=== PATIENT | male | born 1960 | race Caucasian/White ===

== ENCOUNTER 2017-07-23 05:34 | Inpatient (IN) | payer OTHER ==
[2017-07-23] VITALS (7 sets, daily range): BP systolic 163–229; BP diastolic 88–125; PULSE 62–70; TEMP 36.4–37; O2SAT 96–98; Ht 172.7 cm; Wt 93.0 kg
[~2017-07-23] VITALS: Ht 172.7 cm; Wt 93.0 kg
[2017-07-23] MEDS ORDERED: SODIUM CHLORIDE 0.9% 1000ML 1,000 ML IV SCH (05:48)
[2017-07-23] MEDS ORDERED: LABETALOL HCL IV 5 MG/ML 20ML IV STA ×3 (05:51→13:27)
--- NOTE | 2017-07-23 05:52 | EMERGENCY ROOM VISIT NOTE ---
History Report prepared by Aleida: Iftikhar Augustin Under the Supervision of: Dr. Cornelio Mcdaniel D.O. First contact with patient: 05:43 Chief Complaint: HYPERTENSION Stated Complaint: HIGH BLOOD PRESSURE History of Present Illness The patient is a 57 year old male who presents to the Emergency Room from [facility] with stroke like symptoms that he first noticed at 0200 this morning, 4 hours prior to arrival. The patient states that when he woke up this morning at 0200 he could not move his entire right side. He claims that he was stuck on the floor and was unable to move. He is having difficulty talking as well. The patient currently has much better control of his right arm and right leg, and notes that the weakness on the right side is improving. He can still feel a facial droop and notes its still difficult to talk. He currently denies any headache. His current blood pressure is 208/140. 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 A total of ten systems were reviewed and were otherwise negative. Past Medical & Surgical Patient denies any past medical/surgical histories. Family History Patient denies any family medical histories. 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) Current/Historical Medications No Active Prescriptions or Reported Meds Allergies Coded Allergies: No Known Allergies (Unverified , 07/23/17) Physical Exam Vital Signs Date Time Temp Pulse Resp B/P (MAP) Pulse Ox O2 Delivery O2 Flow Rate FiO2 07/23/17 06:54 60 16 180/102 96 Room Air 07/23/17 06:42 69 16 168/103 98 Room Air 07/23/17 06:23 172/104 07/23/17 06:19 63 12 97 07/23/17 06:19 97 Room Air 07/23/17 06:15 189/110 07/23/17 06:15 77 07/23/17 06:12 191/109 07/23/17 05:38 36.4 72 18 208/141 98 Room Air Physical Exam GENERAL: Awake, alert, well-appearing, in no distress HENT: Mild right facial droop. Normocephalic, atraumatic. Oropharynx unremarkable. EYES: Normal conjunctiva. Sclera non-icteric. NECK: Supple. No nuchal rigidity. FROM. No JVD. RESPIRATORY: Clear to auscultation. CARDIAC: Regular rate, normal rhythm. Extremities warm and well perfused. Pulses equal. ABDOMEN: Soft, non-distended. No tenderness to palpation. No rebound or guarding. No masses. RECTAL: Deferred. MUSCULOSKELETAL: There is a mild right pronator drift in the RUQ. Normal Strength. Chest examination reveals no tenderness. The back is symmetrical on inspection without obvious abnormality. There is no CVA tenderness to palpation. No joint edema. LOWER EXTREMITIES: Calves are equal size bilaterally and non-tender. No edema. No discoloration. NEURO: Normal sensorium. There is a mild right pronator drift in the RUQ. Normal Strength. SKIN: No rash or jaundice noted. Medical Decision & Procedures ER Provider Diagnostic Interpretation: X ray results as stated below per my interpretation and radiologist interpretation. Other radiology results as stated below per my review and radiologist interpretation ANGIOGRAPHY HEAD COMBO HISTORY: Hypertension STROKE, HIGH BLOOD PRESSURE TECHNIQUE: Multiaxial CT images of the head were performed both before and after the intravenous administration of contrast to evaluate the major cerebral vessels. Maximum intensity projection images were also obtained. A dose lowering technique was utilized adhering to the principles of ALARA. COMPARISON: None. FINDINGS: There is no mass, hematoma, midline shift, or acute infarct. Visualized intracranial internal carotid arteries, distal vertebral arteries, and basilar artery are widely patent. There is no significant stenosis, occlusion, or aneurysm seen within the bilateral ACAs, MCAs, or information systems supervisor. Mild scattered atherosclerotic change in the intracranial vasculature IMPRESSION: No significant stenosis, occlusion, or aneurysm within the [place]. Mild scattered atherosclerotic change with no significant stenotic process. The above report was generated using voice recognition software. It may contain grammatical, syntax or spelling errors. Electronically signed by: Anthony Dhillon M.D. 07/23/2017 6:47 AM Dictated Date/Time: 07/23/2017 6:42 AM CTA NECK: Atherosclerosis with noncalcified plaque at the carotid bifurcations. No hemodynamically significant stenosis. Bilateral vertebral arteries are patent and normal in caliber. CT HEAD: No ICH, mass effect, or edema. The [place]-white matter differentiation appears preserved. No skull fracture. Visualized sinuses and mastoid air cells are clear. CTA HEAD: Patent intracranial circulation. No evidence of aneurysm or vascular malformation. 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 Laboratory Results 07/23/17 05:50 Red Blood Count 5.10, Mean Corpuscular Volume 87.6, Mean Corpuscular Hemoglobin 29.6, Mean Corpuscular Hemoglobin Concent 33.8, Mean Platelet Volume 11.5, Neutrophils (%) (Auto) 80.3, Lymphocytes (%) (Auto) 13.6, Monocytes (%) (Auto) 5.0, Eosinophils (%) (Auto) 0.6, Basophils (%) (Auto) 0.2, Neutrophils # (Auto) 9.08, Lymphocytes # (Auto) 1.54, Monocytes # (Auto) 0.56, Eosinophils # (Auto) 0.07, Basophils # (Auto) 0.02 07/23/17 05:50 Test 07/23/17 05:50 07/23/17 06:14 07/23/17 06:17 White Blood Count 11.30 K/uL (4.8-10.8) Red Blood Count 5.10 M/uL (4.7-6.1) Hemoglobin 15.1 g/dL (14.0-18.0) Hematocrit 44.7 % (42-52) Mean Corpuscular Volume 87.6 fL (80-100) Mean Corpuscular Hemoglobin 29.6 pg (25-34) Mean Corpuscular Hemoglobin Concent 33.8 g/dl (32-36) Platelet Count 191 K/uL (130-400) Mean Platelet Volume 11.5 fL (7.4-10.4) Neutrophils (%) (Auto) 80.3 % Lymphocytes (%) (Auto) 13.6 % Monocytes (%) (Auto) 5.0 % Eosinophils (%) (Auto) 0.6 % Basophils (%) (Auto) 0.2 % Neutrophils # (Auto) 9.08 K/uL (1.4-6.5) Lymphocytes # (Auto) 1.54 K/uL (1.2-3.4) Monocytes # (Auto) 0.56 K/uL (0.11-0.59) Eosinophils # (Auto) 0.07 K/uL (0-0.5) Basophils # (Auto) 0.02 K/uL (0-0.2) RDW Standard Deviation 43.4 fL (36.4-46.3) RDW Coefficient of Variation 13.5 % (11.5-14.5) Immature Granulocyte % (Auto) 0.3 % Immature Granulocyte # (Auto) 0.03 K/uL (0.00-0.02) Prothrombin Time 10.5 SECONDS (9.0-12.0) Prothromb Time International Ratio 1.0 (0.9-1.1) Activated Partial Thromboplast Time 22.6 SECONDS (21.0-31.0) Partial Thromboplastin Ratio 0.9 Anion Gap 6.0 mmol/L (3-11) Est Creatinine Clear Calc Drug Dose 68.5 ml/min Estimated GFR () 69.2 Estimated GFR (Non- 59.7 BUN/Creatinine Ratio 10.8 (10-20) Calcium Level 9.3 mg/dl (8.5-10.1) Magnesium Level 2.3 mg/dl (1.8-2.4) Total Creatine Kinase 189 U/L (39-308) Creatine Kinase MB 2.9 ng/ml (0.5-3.6) Creatine Kinase MB Ratio 1.5 (0-3.0) Troponin I < 0.015 ng/ml (0-0.045) Bedside Glucose 138 mg/dl (70-99) Bedside Prothrombin Time INR 1.0 (0.9-1.1) Laboratory results reviewed by me Medications Administered Medications (Trade) Dose Ordered Sig/Katie Route Start Time Stop Time Status Last Admin Dose Admin Sodium Chloride 1,000 ml @ 50 mls/hr Q20H IV 07/23/17 05:48 08/22/17 05:47 07/23/17 05:48 50 MLS/HR Labetalol HCl (Normodyne IV) 20 mg NOW STAT IV 07/23/17 05:51 07/23/17 05:52 DC 07/23/17 06:17 20 MG Labetalol HCl (Normodyne IV) 20 mg NOW STAT IV 07/23/17 06:30 07/23/17 06:32 DC 07/23/17 06:40 20 MG ECG Indication: weakness Rate (beats per minute): 67 Rhythm: normal sinus Findings: no ectopy, other (Normal axis, normal intervals) ED Course 0544: The patient was evaluated in room A10. A complete history and physical exam was performed. 0548: Ordered Sodium Chloride 1000 mL @ 50 mL/hr IV. 0551: Ordered Labetalol HCl 20 mg IV 0623: The patient's blood pressure is down. His symptoms are unchanged. Able to move all extremities. 0630: Ordered Labetalol HCl 20 mg IV. 0650: The Charge Nurse discussed the case with Dr. Dharmesh DAI [facility] at this time. He is aware of the patient's case. Medical Decision Differential Diagnosis includes; CVA, TIA, Aneurysm, Subarachnoid Hemorrhage, Hypertensive crisis. Patient has symptoms suggestive of TIA CVA. Patient's onset of symptoms are unknown patient is from the [facility] and reportedly went to bed at around 10 PM states he woke up at 2 AM with right sided deficits and hemiparesis. Patient states they resolved and he has no difficulty with speech no confusion or headache at this time. Patient has a mild right-sided facial droop and very mild pronator drift on the right side however he has equal strength in bilateral upper and lower extremities normal speech. Patient's blood pressure initially was 210/140 patient was given IV labetalol and his blood pressure is decreased to 190/104. Repeat examination the patient at 6:30 patient is unchanged. Patient currently is not a TPA candidate due to unknown onset and wakeup stroke with deficits that improved drastically over 3 hours prior to presentation. Patient is also in a hypertensive crisis and has been treated with IV medications for hypertension; case be discussed with the hospitalist for admission Blood Pressure Screening Patient's blood pressure: Elevated blood pressure Blood pressure disposition: Referred to PCP Hypertensive Urgency noted. Patient treated and informed of situation. Consults Time Called: 0645 Consulting Physician: Dr. Dharmesh DAI Hospitalist Returned Call: 0650 The Charge Nurse discussed the case with Dr. Dharmesh Jo at this time. He is aware of the patient's case. Impression Primary Impression: Hypertensive crisis Additional Impression: TIA (transient ischemic attack) Critical Care I have personally spent greater than 35 minutes of critical care time in the direct management of this patient. This includes bedside care, interpretation of diagnostic studies, and testing, discussion with consultants, patient, and family members, and other required patient management activities. This 35 minutes is in excess of all separately billable procedures. Scribe Attestation The scribe's documentation has been prepared under my direction and personally reviewed by me in its entirety. I confirm that the note above accurately reflects all work, treatment, procedures, and medical decision making performed by me. Departure Information Dispostion Being Evaluated By Hospitalist Prescriptions No Active Prescriptions or Reported Meds Referrals Gladis FORD (PCP) Patient Instructions My [facility] Stroke History Time Last Known Well Last night before Bed Stroke t-PA Criteria Reviewed Does NOT meet criteria for t-PA Reason t-PA Not Given Treatment not indicated Problem Qualifiers
[2017-07-23] MEDS ORDERED: OPTIRAY 320 IV PRN (06:00)
[2017-07-23 06:06] LABS: BASO % 0.2 %; BASO ABS # 0.02 K/uL (0-0.2); COMPLETE YES; EOS % 0.6 %; HEMATOCRIT 44.7 % (42-52); IG% 0.3 %; LYMPH % 13.6 %; LYMPH ABS # 1.54 K/uL (1.2-3.4); MEAN CELL VOLUME 87.6 fL (80-100); MEAN CORPUSCULAR HEMOGLOBIN 29.6 pg (25-34); MEAN CORPUSCULAR HGB CONC 33.8 g/dl (32-36); MEAN PLATELET VOLUME 11.5 fL (7.4-10.4); NEUT % 80.3 %; PLATELET COUNT 191 K/uL (130-400)
[2017-07-23 06:18] LABS: PARTIAL THROMBOPLASTIN RATIO 0.9; PROTHROMBIN TIME (PATIENT) 10.5 SECONDS (9.0-12.0)
[2017-07-23 06:28] LABS: BLOOD UREA NITROGEN 14 mg/dl (7-18); BUN/CREATININE RATIO 10.8 (10-20); CALCIUM 9.3 mg/dl (8.5-10.1); CARBON DIOXIDE 25 mmol/L (21-32); CHLORIDE 104 mmol/L (98-107); GLUCOSE 140 mg/dl (70-99); MAGNESIUM 2.3 mg/dl (1.8-2.4); POTASSIUM 3.8 mmol/L (3.5-5.1); SODIUM 135 mmol/L (136-145)
[2017-07-23 06:33] LABS: CKMB/CK RATIO 1.5 (0-3.0)
--- NOTE | 2017-07-23 06:48 | DIAGNOSTIC IMAGING REPORT ---
ANGIOGRAPHY HEAD COMBO HISTORY: Hypertension STROKE, HIGH BLOOD PRESSURE TECHNIQUE: Multiaxial CT images of the head were performed both before and after the intravenous administration of contrast to evaluate the major cerebral vessels. Maximum intensity projection images were also obtained. A dose lowering technique was utilized adhering to the principles of ALARA. COMPARISON: None. FINDINGS: There is no mass, hematoma, midline shift, or acute infarct. Visualized intracranial internal carotid arteries, distal vertebral arteries, and basilar artery are widely patent. There is no significant stenosis, occlusion, or aneurysm seen within the bilateral ACAs, MCAs, or mailing specialist. Mild scattered atherosclerotic change in the intracranial vasculature IMPRESSION: No significant stenosis, occlusion, or aneurysm within the [place]. Mild scattered atherosclerotic change with no significant stenotic process. The above report was generated using voice recognition software. It may contain grammatical, syntax or spelling errors. Electronically signed by: Anthony Dhillon M.D. 07/23/2017 6:47 AM Dictated Date/Time: 07/23/2017 6:42 AM
--- NOTE | 2017-07-23 07:14 | DIAGNOSTIC IMAGING REPORT ---
NECK ANGIO WITH CONTRAST HISTORY: Mental status change hypertension TECHNIQUE: Multiaxial CT images of the neck were performed following the intravenous administration of contrast to evaluate the major cervical vessels. Maximum intensity projection images were also obtained. All measurements were calculated based on NASCET criteria. A dose lowering technique was utilized adhering to the principles of ALARA. COMPARISON STUDY: None. FINDINGS: The aortic arch and proximal great vessels are widely patent. There is no significant stenosis, occlusion, or dissection identified within the bilateral common carotid, internal carotid, or vertebral arteries. Mild scattered atherosclerotic change throughout the carotid as well as vertebral basilar systems. No evidence for high-grade stenotic process. IMPRESSION: No significant stenosis, occlusion, or dissection identified within the carotid or vertebral arteries. Moderate scattered atherosclerotic plaque formation The above report was generated using voice recognition software. It may contain grammatical, syntax or spelling errors. Electronically signed by: Anthony Dhillon M.D. 07/23/2017 7:13 AM Dictated Date/Time: 07/23/2017 7:11 AM
[2017-07-23] MEDS ORDERED: PHARMACIST DISCHARGE MED REC CONSULT PRN (08:00)
[2017-07-23] MEDS ORDERED: ONDANSETRON INJ 2 MG/ML 2 ML VIAL IV PRN (08:00)
[2017-07-23] MEDS ORDERED: NITROGLYCERIN 0.4 MG SL PER TAB CHARGE SL PRN (08:00)
--- NOTE | 2017-07-23 08:15 | History and Physical ---
History & Physical Date & Time of Service: Jul 23, 2017 at 07:28 Chief Complaint: High Blood Pressure Primary Care Physician: Gladis FORD History of Present Illness Source: patient, hospital records 57yo male with no significant PMH who presented from [facility] with complaints of right sided numbness, weakness, difficulty walking, and difficulty speaking. Patient reports that starting Sunday AM he simply didn't feel well. He had generalized weakness and fatigue in the absence of fever, chills, or focal motor /sensory symptoms. Sometime on Sunday afternoon, however, he developed right arm and right leg numbness. The face at that time was spared. Then, sometime late in the evening Sunday, he noted mild right-sided weakness. He went to bed, and about 0200 today, he couldn't walk due to extreme right- sided weakness. He told his cell-mate about his symptoms and both he and his cell-mate also noted dysarthric speech at that time. He presented to [facility] later this morning where CTA of the head/neck were negative. He told ER personnel that his right-sided weakness was improving but still not back to baseline. His blood pressure was also markedly elevated to >200 and he received 2 doses of IV labetalol. During my assessment his SBP was about 180. 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) Allergies Coded Allergies: No Known Allergies (Unverified , 07/23/17) Home Medications No Active Prescriptions or Reported Meds Review of Systems Constitutional: + weakness, + fatigue, + problem reported (weight gain over time), No fever, No chills, No weight loss Eyes: No worsening of vision, No eye pain, No redness, No discharge, No diplopia ENT: No hearing loss, No nasal symptoms, No sore throat, No trouble swallowing Respiratory: No cough, No sputum, No wheezing, No shortness of breath, No dyspnea on exertion, No dyspnea at rest Cardiovascular: No chest pain, No orthopnea, No edema Abdomen: No pain, No nausea, No vomiting, No diarrhea, No constipation, No GI bleeding Musculoskeletal: + problem reported (chronic anterior left neck pain X 1 year) , No joint pain, No muscle pain Genitourinary - Male: No dysuria Neurologic: + weakness (right arm/leg), + numbness/tingling (right arm/leg), + problem reported (no headaches this weekend), No vertigo Psychiatric: No depression symptoms Endocrine: + fatigue Hematologic / Lymphatic: No abnormal bleeding/bruising Integumentary: No itch Physical Exam Vital Signs Date Time Temp Pulse Resp B/P (MAP) Pulse Ox O2 Delivery O2 Flow Rate FiO2 07/23/17 07:17 66 20 181/106 94 Room Air 07/23/17 06:54 60 16 180/102 96 Room Air 07/23/17 06:53 36.4 69 16 168/103 Room Air 07/23/17 06:42 69 16 168/103 98 Room Air 07/23/17 06:23 172/104 07/23/17 06:19 63 12 97 07/23/17 06:19 97 Room Air 07/23/17 06:15 189/110 07/23/17 06:15 77 07/23/17 06:12 191/109 07/23/17 05:38 36.4 72 18 208/141 98 Room Air General Appearance: WD/WN, no apparent distress Head: normocephalic, atraumatic Eyes: normal inspection, PERRL, EOMI, sclerae normal, + pertinent finding ( visual albarran full by direct confrontation) ENT: hearing grossly normal, TMs normal, + pertinent finding (left posterior throat with small, white papule; right-sided lower 2/3 facial droop; mild dysarthria) Neck: supple, no adenopathy, thyroid normal, no JVD, no carotid bruits, trachea midline, + pertinent finding (fullness to left anterior neck but no discrete mass or lymph node) Respiratory/Chest: lungs clear, normal breath sounds, no respiratory distress, no accessory muscle use Cardiovascular: regular rate, rhythm, no gallop, normal peripheral pulses, + systolic murmur (1/6 DEEPTHI LSB) Abdomen/GI: normal bowel sounds, non tender, soft, no organomegaly, no pulsatile mass Back: normal inspection Extremities/Musculoskelatal: no pedal edema Neurologic/Psych: alert, normal mood/affect, normal reflexes, oriented x 3, + facial droop (right), + motor weakness (pronator drift on right; 4/5 strength RUE/RLE; 5/5 strength LUE/LLE), + sensory deficit (intact x 4 extremities), + babinski (on right, negative on left) Skin: + pertinent finding (erythematous macules/papules on back/chest) Lymphatic: no adenopathy (cervical ) Diagnostics Laboratory Results Results Past 24 Hours Test 07/23/17 05:50 07/23/17 06:14 07/23/17 06:17 Range/Units White Blood Count 11.30 4.8-10.8 K/uL Red Blood Count 5.10 4.7-6.1 M/uL Hemoglobin 15.1 14.0-18.0 g/dL Hematocrit 44.7 42-52 % Mean Corpuscular Volume 87.6 80-100 fL Mean Corpuscular Hemoglobin 29.6 25-34 pg Mean Corpuscular Hemoglobin Concent 33.8 32-36 g/dl Platelet Count 191 130-400 K/uL Mean Platelet Volume 11.5 7.4-10.4 fL Neutrophils (%) (Auto) 80.3 % Lymphocytes (%) (Auto) 13.6 % Monocytes (%) (Auto) 5.0 % Eosinophils (%) (Auto) 0.6 % Basophils (%) (Auto) 0.2 % Neutrophils # (Auto) 9.08 1.4-6.5 K/uL Lymphocytes # (Auto) 1.54 1.2-3.4 K/uL Monocytes # (Auto) 0.56 0.11-0.59 K/uL Eosinophils # (Auto) 0.07 0-0.5 K/uL Basophils # (Auto) 0.02 0-0.2 K/uL RDW Standard Deviation 43.4 36.4-46.3 fL RDW Coefficient of Variation 13.5 11.5-14.5 % Immature Granulocyte % (Auto) 0.3 % Immature Granulocyte # (Auto) 0.03 0.00-0.02 K/uL Prothrombin Time 10.5 9.0-12.0 SECONDS Prothromb Time International Ratio 1.0 0.9-1.1 Activated Partial Thromboplast Time 22.6 21.0-31.0 SECONDS Partial Thromboplastin Ratio 0.9 Sodium Level 135 136-145 mmol/L Potassium Level 3.8 3.5-5.1 mmol/L Chloride Level 104 98-107 mmol/L Carbon Dioxide Level 25 21-32 mmol/L Anion Gap 6.0 3-11 mmol/L Blood Urea Nitrogen 14 7-18 mg/dl Creatinine 1.30 0.60-1.40 mg/dl Est Creatinine Clear Calc Drug Dose 68.5 ml/min Estimated GFR () 69.2 Estimated GFR (Non- 59.7 BUN/Creatinine Ratio 10.8 10-20 Random Glucose 140 70-99 mg/dl Calcium Level 9.3 8.5-10.1 mg/dl Magnesium Level 2.3 1.8-2.4 mg/dl Total Creatine Kinase 189 39-308 U/L Creatine Kinase MB 2.9 0.5-3.6 ng/ml Creatine Kinase MB Ratio 1.5 0-3.0 Troponin I < 0.015 0-0.045 ng/ml Bedside Glucose 138 70-99 mg/dl Bedside Prothrombin Time INR 1.0 0.9-1.1 Diagnostic Radiology CTA head & neck negative for focal stenosis or lesion; no aneurysm. mild-moderate plaque build-up noted. EKG EKG - NSR, no ST changes no LVH Impression Assessment and Plan 57yo male with no PMH presenting with facial droop, mild dysarthria, right arm/ leg weakness, and right arm/leg sensory disturbance. Symptoms and signs are consistent with acute stroke. [facility] and thus he is well out of the window for TPA. 1. suspected left-sided stroke - NPO until swallow evaluation. MRI brain this AM. ECHO, r/o source of embolus. Place on telemetry. Asa 81mg daily. Lipitor 40mg daily. Check lipids, TSH, hemoglobin a1c for risk factor modification. Allow permissive HTN - will NOT lower SBP to less than 180 or DBP less than 100 for the next 24 hours. PT, OT evals. Neurology consultation also requested. 2. elevated BP w/o formal dx of HTN - he likely has essential HTN and the acute elevation is compensatory for #1. Again allow permissive HTN today. 3. hyperglycemia - check hemoglobin a1c, r/o early T2DM. 4. leukocytosis - likely 2nd to #1, but will check u/a and cxr to r/o any infectious issue. 5. DVT proph - lovenox. 6. FEN - NPO until swallow eval by speech. NS at 100cc/hr. Lytes stable. BMP in am. code status - discussed extensively - he wants level 5 DNR; he would not even want short-term intubation/mechanical ventilation conversation witnessed by 2 guards as well Level of Care Telemetry Advanced Directives Existing Living Will: Yes Existing Power of Customs Compliance Director: Yes Resuscitation Status DO NOT RESUSCITATE VTE Prophylaxis VTE Risk Assessment Done? Y/N: Yes Risk Level: Moderate Given or contraindicated: Enoxaparin (Lovenox)SQ Note total time about 60 minutes Additional Copies To Gladis FORD
[2017-07-23 08:47] LABS: ESTIMATED AVERAGE GLUCOSE 134 mg/dl; HA1C FLAG Normal (Normal)
--- NOTE | 2017-07-23 09:06 | DIAGNOSTIC IMAGING REPORT ---
CHEST ONE VIEW PORTABLE CLINICAL HISTORY: leukocytosis, eval for pneumonia pneumonia. Dyspnea. COMPARISON STUDY: No previous studies for comparison. FINDINGS: The bones soft tissues and hemidiaphragms are normal. The cardiomediastinal silhouette is normal. The lungs are clear. The pulmonary vasculature is normal. IMPRESSION: Negative chest. The above report was generated using voice recognition software. It may contain grammatical, syntax or spelling errors. Electronically signed by: Anthony Dhillon M.D. 07/23/2017 9:04 AM Dictated Date/Time: 07/23/2017 9:04 AM
[2017-07-23] MEDS: ATORVASTATIN 40 MG TAB PO SCH ×2 (10:00→15:52)
[2017-07-23] MEDS: ASPIRIN 81 MG ECTAB PO SCH ×2 (10:00→15:52)
[2017-07-23 10:35] LABS: URINE APPEARANCE CLEAR (CLEAR); URINE BILIRUBIN NEG (NEG); URINE COLOR YELLOW; URINE NITRITE NEG (NEG); URINE SPECIFIC GRAVITY > 1.045 (1.000-1.030); UROBILINOGEN NEG (NEG)
[2017-07-23 10:36] LABS: MANUAL MICROSCOPIC REQUIRED? NO; REVIEW REQ? NO
--- NOTE | 2017-07-23 11:11 | DIAGNOSTIC IMAGING REPORT ---
MRI OF THE BRAIN WITHOUT CONTRAST CLINICAL HISTORY: Right-sided numbness. Suspected left-sided stroke. COMPARISON STUDY: CT of the head and CTA of the head July 23, 2017. TECHNIQUE: Utilizing a 1.5 Cassandra magnet and dedicated coil, multiplanar, multiecho imaging of the brain was performed without IV contrast. FINDINGS: Note is made of a subtle focus of increased signal intensity within the left anterior aspect of the rebeca on the diffusion-weighted sequence shown on axial image 7 of 84. There is corresponding hypointensity on the ADC map and a corresponding 9 mm hyperintense focus on the coronal FLAIR sequence. This suggests a small acute to subacute infarct. No additional acute to subacute infarcts are present. Ventricular system is normal. Basilar cisterns are patent. There are no extra-axial collections. Flow-voids for the major intracranial vessels are present. Calvarial signal is maintained. Orbits are unremarkable. Sinuses and mastoid air cells appear clear. No intracranial masses identified on this unenhanced study. Minimal white matter T2 hyperintensity suggest mild small vessel disease. IMPRESSION: 1. Subtle 9 mm focus of signal abnormality within the left anterior rbeeca suggestive of a small acute to subacute infarct. 2. No acute intracranial hemorrhage or mass effect. Electronically signed by: Jose Varela M.D. 07/23/2017 11:10 AM Dictated Date/Time: 07/23/2017 11:04 AM
[2017-07-23] MEDS: ENOXAPARIN 40 MG/0.4 ML SYR SC SCH (11:37)
[2017-07-23] MEDS: SODIUM CHLORIDE 0.9% 1000ML 1,000 ML IV SCH ×2 (11:38→20:01)
[2017-07-23] MEDS: NIFEdipine 30 MG CR TAB PO STA ×2 (11:45→14:53)
[2017-07-23] MEDS ORDERED: LABETALOL HCL IV 5 MG/ML 20ML IV PRN (12:00)
--- NOTE | 2017-07-23 12:06 | Neurology Consultation ---
Neurology Consultation Date of Consultation: Jul 23, 2017. Attending Physician: Gurwinder Davidson MD Primary Care Physician: Gladis FORD Reason for Consultation: The patient is a 57-year-old, who was asked to see the request of Dr. Davidson, for neurologic consultation regarding stroke. History of Present Illness Source: patient, caregiver, hospital records Patient tells me he has no significant past history of heart issues, hypertension, diabetes, dyslipidemia, or other significant problems or neurologic risk factors. He has been on no medication. Currently he has been at [facility] for the last 4 and half years, originally from [place]. During the daytime of July 21 he felt fatigued in general. He had no weakness or numbness, pain, headaches her achiness, and was not ill in any way. He had no cough or fever. He had not done anything out of the ordinary. He woke on July 22 and his right side was weak and mildly sore. He had some tingling on the right side that lasted about 30 minutes, resolve, and return for short time later in the evening. Throughout the day, he had mild right-sided weakness in the arm and leg which did not fluctuate. He did not have speech problems or facial droop. At 0200 hours on July 23 he awoke not being able to move his right side. He tried to get up to go to the bathroom and he fell to the ground. He could not get up. His speech was slurred and he had a facial droop. He had no pain or headache or incontinence of urine. He arrived at the emergency room at 0538 hours today with a temperature of 36.4 , pulse 72 and regular, respiratory rate 18, blood pressure 208/141, and O2 saturation 98 percent. He had right-sided weakness and facial droop with slurred speech. CT scan of the head and CT angiography of the head and neck were all unremarkable with no acute issues, vascular stenosis or abnormalities or stroke of an obvious nature. CBC, Chem profile, TSH, and urinalysis were unremarkable except for a mildly elevated glucose. MRI of the brain was obtained and showed a 9 millimeter left pontine infarct of a subacute nature. There was no hemorrhage. Currently, the patient feels as if he has some right-sided weakness and slurred speech but he does not have any pain or headache. He has no vision problems or dizziness. Past Medical/Surgical History Medical Problems: (1) Hypertensive crisis Status: Acute (2) TIA (transient ischemic attack) Status: Acute Left pontine ischemic infarct Significant hypertension No other past medical history of medical or surgical issues with no history of previous surgery. He does have some borderline elevated glucose readings. Family History Mother age 83 with a senile dementia of the Alzheimer's type. Father age 72 of lung cancer Social History Patient never smoked cigarettes and does not use alcohol. 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 Smoking Status: Never smoker Smokeless Tobacco Use: No Alcohol Use: none Drug Use: none Marital Status: single Housing Status: other (Correctional Facility) Occupation Status: other (Prisoner) Allergies Coded Allergies: No Known Allergies (Unverified , 07/23/17) Current Inpatient Medications Current Inpatient Medications Medications (Trade) Dose Ordered Sig/Katie Route Start Time Stop Time Status Last Admin Dose Admin Ioversol (Optiray 320) 100 ml UD PRN IV 07/23/17 06:00 07/27/17 05:59 Atorvastatin Calcium (Lipitor Tab) 40 mg QAM PO 07/23/17 10:00 08/22/17 09:59 Aspirin (Ecotrin Tab) 81 mg QAM PO 07/23/17 10:00 08/22/17 09:59 Miscellaneous Information (Pharmacist Discharge Med Rec Consult) 1 ea UD PRN N/A 07/23/17 08:00 08/22/17 07:59 Sodium Chloride 1,000 ml @ 100 mls/hr Q10H IV 07/23/17 09:30 08/22/17 09:29 07/23/17 11:38 100 MLS/HR Enoxaparin Sodium (Lovenox Inj) 40 mg QAM SC 07/23/17 10:00 08/22/17 09:59 07/23/17 11:37 40 MG Ondansetron HCl (Zofran Inj) 4 mg Q6H PRN IV 07/23/17 08:00 08/22/17 07:59 Nitroglycerin (Nitrostat Tab) 0.4 mg UD PRN SL 07/23/17 08:00 08/22/17 07:59 Review of Systems Constitutional: + fatigue, No fever, No weakness Eyes: No worsening of vision, No diplopia ENT: No hearing loss, No trouble swallowing Respiratory: No cough, No shortness of breath Cardiovascular: No chest pain, No palpitations Abdomen: No pain, No nausea Musculoskeletal: No joint pain, No muscle pain Genitourinary - Male: No dysuria, No urinary incontinence Neurologic: + weakness, + balance problems, No memory loss, No numbness/ tingling, No vertigo Psychiatric: No depression symptoms, No anxiety Endocrine: + fatigue Hematologic / Lymphatic: No abnormal bleeding/bruising Integumentary: No rash Allergic / Immunologic: No hives Physical Exam Vital Signs (Past 24 Hrs): Date Time Temp Pulse Resp B/P (MAP) Pulse Ox O2 Delivery O2 Flow Rate FiO2 07/23/17 09:15 37.0 69 20 196/98 (130) 97 Room Air 07/23/17 09:10 Room Air 07/23/17 08:58 77 18 181/107 97 07/23/17 08:19 66 07/23/17 07:17 66 20 181/106 94 Room Air 07/23/17 06:54 60 16 180/102 96 Room Air 07/23/17 06:53 36.4 69 16 168/103 Room Air 07/23/17 06:42 69 16 168/103 98 Room Air 07/23/17 06:23 172/104 07/23/17 06:19 63 12 97 07/23/17 06:19 97 Room Air 07/23/17 06:15 189/110 07/23/17 06:15 77 07/23/17 06:12 191/109 07/23/17 05:38 36.4 72 18 208/141 98 Room Air Patient is right-handed. The patient is awake and alert. Speech is normal without aphasia but he has some very mild dysarthria. Mentation and thought processes are intact with orientation and normal fund of knowledge. Mood and affect are normal and appropriate. Appearance and grooming are normal. Long and short-term memory are intact. The discs are sharp with positive venous pulsations. There are no exudates, hemorrhages, or blood vessel changes seen. Pupils are 3mm bilaterally and reactive to light. Extraocular eye muscles are intact without nystagmus. Visual acuity and visual albarran seem normal grossly to confrontation. There are no deficits to sensation of the face bilaterally. Corneal reflexes are positive bilaterally. He has a flattening of the right corner of the mouth and does not move well with voluntary smile as does the left. Hearing seems intact grossly to voice and finger rub. Palate moves well without asymmetry. There is normal sternocleidomastoid and trapezius strength bilaterally. Tongue is midline with good strength bilaterally. Neck is with full range of motion without discomfort. There are no cervical bruits. There are no cranial or ocular bruits. Heart is without murmur. Cervical, thoracic, and lumbar spine are nontender to palpation. Gait was not tested but stance sitting up in bed is normal. With outstretched arms there is a mild drift on the right. There are no resting , postural, or action tremors. There is no ataxia with [id number] testing. There is decreased facility in the right hand and the right foot compared to the left side which were normal. There are no abnormal involuntary movements noted. Motor strength is 4+/5 proximally in the right arm and leg and 4/5 distally in the right arm and leg. The left side is 5/5 diffusely both proximally and distally. The limbs have good tone without rigidity or spasticity, and there is no atrophy noted. Muscle bulk is normal, there is no tenderness, no myotonia noted to percussion, and no fasciculations seen. Sensory examination is intact to pin and touch throughout all four limbs. Reflexes are 1/4 in the biceps, triceps, brachioradialis, quadriceps, and Achilles tendons bilaterally. Toes are downgoing with plantar stimulation on the left and upgoing with plantar stimulation on the right Peripheral pulses are present and of normal quality distally in all four limbs. There is no peripheral edema noted. Laboratory Results Past 24 Hours: 07/23/17 05:50 Red Blood Count 5.10, Mean Corpuscular Volume 87.6, Mean Corpuscular Hemoglobin 29.6, Mean Corpuscular Hemoglobin Concent 33.8, Mean Platelet Volume 11.5, Neutrophils (%) (Auto) 80.3, Lymphocytes (%) (Auto) 13.6, Monocytes (%) (Auto) 5.0, Eosinophils (%) (Auto) 0.6, Basophils (%) (Auto) 0.2, Neutrophils # (Auto) 9.08, Lymphocytes # (Auto) 1.54, Monocytes # (Auto) 0.56, Eosinophils # (Auto) 0.07, Basophils # (Auto) 0.02 07/23/17 05:50 Test 07/23/17 05:50 07/23/17 06:14 07/23/17 06:17 07/23/17 09:55 White Blood Count 11.30 K/uL (4.8-10.8) Red Blood Count 5.10 M/uL (4.7-6.1) Hemoglobin 15.1 g/dL (14.0-18.0) Hematocrit 44.7 % (42-52) Mean Corpuscular Volume 87.6 fL (80-100) Mean Corpuscular Hemoglobin 29.6 pg (25-34) Mean Corpuscular Hemoglobin Concent 33.8 g/dl (32-36) Platelet Count 191 K/uL (130-400) Mean Platelet Volume 11.5 fL (7.4-10.4) Neutrophils (%) (Auto) 80.3 % Lymphocytes (%) (Auto) 13.6 % Monocytes (%) (Auto) 5.0 % Eosinophils (%) (Auto) 0.6 % Basophils (%) (Auto) 0.2 % Neutrophils # (Auto) 9.08 K/uL (1.4-6.5) Lymphocytes # (Auto) 1.54 K/uL (1.2-3.4) Monocytes # (Auto) 0.56 K/uL (0.11-0.59) Eosinophils # (Auto) 0.07 K/uL (0-0.5) Basophils # (Auto) 0.02 K/uL (0-0.2) RDW Standard Deviation 43.4 fL (36.4-46.3) RDW Coefficient of Variation 13.5 % (11.5-14.5) Immature Granulocyte % (Auto) 0.3 % Immature Granulocyte # (Auto) 0.03 K/uL (0.00-0.02) Prothrombin Time 10.5 SECONDS (9.0-12.0) Prothromb Time International Ratio 1.0 (0.9-1.1) Activated Partial Thromboplast Time 22.6 SECONDS (21.0-31.0) Partial Thromboplastin Ratio 0.9 Anion Gap 6.0 mmol/L (3-11) Est Creatinine Clear Calc Drug Dose 68.5 ml/min Estimated GFR () 69.2 Estimated GFR (Non- 59.7 BUN/Creatinine Ratio 10.8 (10-20) Estimated Average Glucose 134 mg/dl Hemoglobin A1c 6.3 % (4.5-5.6) Calcium Level 9.3 mg/dl (8.5-10.1) Magnesium Level 2.3 mg/dl (1.8-2.4) Total Creatine Kinase 189 U/L (39-308) Creatine Kinase MB 2.9 ng/ml (0.5-3.6) Creatine Kinase MB Ratio 1.5 (0-3.0) Troponin I < 0.015 ng/ml (0-0.045) Thyroid Stimulating Hormone (TSH) 3.520 uIu/ml (0.300-4.500) Bedside Glucose 138 mg/dl (70-99) Bedside Prothrombin Time INR 1.0 (0.9-1.1) Urine Color YELLOW Urine Appearance CLEAR (CLEAR) Urine pH 6.0 (4.5-7.5) Urine Specific [place] > 1.045 (1.000-1.030) Urine Protein TRACE (NEG) Urine Glucose (UA) NEG (NEG) Urine Ketones 1+ (NEG) Urine Occult Blood NEG (NEG) Urine Nitrite NEG (NEG) Urine Bilirubin NEG (NEG) Urine Urobilinogen NEG (NEG) Urine Leukocyte Esterase NEG (NEG) Urine WBC (Auto) 1-5 /hpf (0-5) Urine RBC (Auto) 0-4 /hpf (0-4) Urine Hyaline Casts (Auto) 1-5 /lpf (0-5) Urine Epithelial Cells (Auto) 10-20 /lpf (0-5) Urine Bacteria (Auto) NEG (NEG) Imaging MRI OF THE BRAIN WITHOUT CONTRAST CLINICAL HISTORY: Right-sided numbness. Suspected left-sided stroke. COMPARISON STUDY: CT of the head and CTA of the head July 23, 2017. TECHNIQUE: Utilizing a 1.5 Cassandra magnet and dedicated coil, multiplanar, multiecho imaging of the brain was performed without IV contrast. FINDINGS: Note is made of a subtle focus of increased signal intensity within the left anterior aspect of the rebeca on the diffusion-weighted sequence shown on axial image 7 of 84. There is corresponding hypointensity on the ADC map and a corresponding 9 mm hyperintense focus on the coronal FLAIR sequence. This suggests a small acute to subacute infarct. No additional acute to subacute infarcts are present. Ventricular system is normal. Basilar cisterns are patent. There are no extra-axial collections. Flow-voids for the major intracranial vessels are present. Calvarial signal is maintained. Orbits are unremarkable. Sinuses and mastoid air cells appear clear. No intracranial masses identified on this unenhanced study. Minimal white matter T2 hyperintensity suggest mild small vessel disease. IMPRESSION: 1. Subtle 9 mm focus of signal abnormality within the left anterior rebeca suggestive of a small acute to subacute infarct. 2. No acute intracranial hemorrhage or mass effect. Electronically signed by: Jose Varela M.D. 07/23/2017 11:10 AM Impression 1. Acute to subacute left pontine ischemic stroke He has mild right chayo paresis with a very mild dysarthria NIH stroke scale equals 4 MRI of the brain shows a 9 millimeter ischemic event in the left rebeca. Etiology of this is likely secondary to acute, significant hypertension. He may have some risk factor with mildly elevated glucose. His lipid status is unknown. He is a nonsmoker. 2. Hypertension This is a significant issue currently. It is not adequately controlled and at bedside this morning right upper extremity was 229/125 and left upper extremity was 226/118. Plan 1. 81 milligram aspirin tablet daily. There is no indication for anticoagulation in this patient. 2. Control blood pressure keeping a mean arterial pressure approximately 100. 3. Control glucose, to a fasting level of closer to 100. 4. Check a fasting lipid profile and initiate statin 5. Physical, occupational, and speech therapy consults 6. Echocardiogram if not ordered. I spoke with Dr. Davidson regarding this case including differential diagnosis and treatment options. I reviewed all laboratory studies, imaging studies and reviewed the actual CT angiography and MRI films.
--- NOTE | 2017-07-23 12:56 | ECHOCARDIOGRAM REPORT ---
*NOTICE TO RECEIVING [employer] This information is strictly Confidential and protected under [place] law. [place] law prohibits you from making any further disclosure of this information unless further disclosure is expressly permitted by the written consent of the person to whom it pertains or is authorized by law. A general authorization for the release of medical or other information is not sufficient for this purpose. Hospital accepts no responsibility if the information is made available to any other person, INCLUDING THE PATIENT. Interpretation Summary * Name: JAYDA REBOLLEDO [id number] Study Date: 07/23/2017 08:17 AM BP: 181/106 mmHg * Patient Location: ED HR: 64 * : 1960 (M/d/yyyy) Gender: Male Height: 68 in * Age: 57 yrs Ethnicity: CA Weight: 209 lb * Performed By: Arely Fernandez RDCS * * Reason For Study: STROKE, EVAL FOR SOURCE OF EMBOLI * BSA: 2.1 m2 * -- Conclusions -- * 1. Normal left ventricular size and systolic function. EF 60-65%. No regional wall motion abnormalities. Mild concentric left ventricular hypertrophy. Type 1 diastolic dysfunction. * 2. No evidence of right to left inter atrial shunt via color Doppler or following injection of agitated saline. * 3. No significant valvular abnormalities visualized. * 4. Normal estimated right ventricular systolic pressure. * 5. No prior study available for comparison. Procedure Details * A saline contrast injection was performed to assess for cardiac shunting. * The injection was performed through an intravenous line in the right arm. * The attending nurse who injected the saline contrast was ELOISA PALOMARES RN. * A total of 20 cc of agitated saline was given. Left Ventricle * Normal left ventricular size and systolic function. EF 60-65%. No regional wall motion abnormalities. Mild concentric left ventricular hypertrophy. Type 1 diastolic dysfunction. Right Ventricle * The right ventricle is normal in size and function. * The right ventricular systolic function is normal as assessed by tricuspid annular plane systolic excursion (TAPSE) (normal >1.5 cm). Atria * The left atrial size is normal. * Right atrial size is normal. * There is no evidence of atrial septal defect, but resolution does not allow assessment for a patent foramen ovale. * No evidence of right to left inter atrial shunt via color Doppler or following injection of agitated saline. Mitral Valve * The mitral valve is grossly normal. * There is no mitral valve stenosis. * There is trace mitral regurgitation. Tricuspid Valve * The tricuspid valve is not well visualized, but is grossly normal. * There is no tricuspid stenosis. * There is trace tricuspid regurgitation. Aortic Valve * The aortic valve is trileaflet. * No hemodynamically significant valvular aortic stenosis. * Trace aortic regurgitation. Pulmonic Valve * The pulmonary valve is inadequately visualized, but the Doppler data is adequate for interpretation. * There is no pulmonic valvular stenosis. * There is no significant pulmonary regurgitation. Great Vessels * The aortic root is normal size. * Aortic arch of normal dimension. Pericardium/Pleural * There is no pericardial effusion. Great Vessels * Normal inferior vena cava size and collapsability with sniff indicates a normal right atrial pressure of 3 mmHg * Normal pulmonary venous flow pattern. MMode 2D Measurements and Calculations IVSd 1.3 cm IVSs 1.9 cm LVIDd 4.2 cm LVIDs 2.7 cm LVPWd 1.3 cm LVPWs 2.3 cm IVS/LVPW 0.98 FS 35.4 % EDV(Teich) 78.6 ml ESV(Teich) 27.4 ml EF(Teich) 65.2 % EDV(cubed) 74.2 ml ESV(cubed) 20.0 ml EF(cubed) 73.0 % % IVS thick 48.4 % % LVPW thick 80.5 % LV mass(C)d 194.1 grams LV mass(C)dI 93.2 grams/m\S\2 LV mass(C)s 257.1 grams LV mass(C)sI 123.4 grams/m\S\2 SV(Teich) 51.3 ml SI(Teich) 24.6 ml/m\S\2 SV(cubed) 54.2 ml SI(cubed) 26.0 ml/m\S\2 Ao root diam 3.5 cm Ao root area 9.4 cm\S\2 LA dimension 3.9 cm LA/Ao 1.1 LVAd ap4 34.3 cm\S\2 LVLd ap4 9.1 cm EDV(MOD-sp4) 104.8 ml EDV(sp4-el) 109.8 ml LVAs ap4 17.8 cm\S\2 LVLs ap4 6.9 cm ESV(MOD-sp4) 40.8 ml ESV(sp4-el) 39.1 ml EF(MOD-sp4) 61.1 % EF(sp4-el) 64.4 % LVAd ap2 30.5 cm\S\2 LVLd ap2 9.0 cm EDV(MOD-sp2) 92.0 ml EDV(sp2-el) 87.4 ml LVAs ap2 16.3 cm\S\2 LVLs ap2 7.3 cm ESV(MOD-sp2) 35.9 ml ESV(sp2-el) 31.0 ml EF(MOD-sp2) 61.0 % EF(sp2-el) 64.6 % LVLd %diff -1.26 % EDV(MOD-bp) 97.0 ml LVLs %diff 5.5 % ESV(MOD-bp) 38.4 ml EF(MOD-bp) 60.4 % SV(MOD-sp4) 64.0 ml SI(MOD-sp4) 30.7 ml/m\S\2 SV(MOD-sp2) 56.2 ml SI(MOD-sp2) 27.0 ml/m\S\2 SV(MOD-bp) 58.6 ml SI(MOD-bp) 28.1 ml/m\S\2 SV(sp4-el) 70.7 ml SI(sp4-el) 33.9 ml/m\S\2 SV(sp2-el) 56.4 ml SI(sp2-el) 27.1 ml/m\S\2 Doppler Measurements and Calculations MV E max francheska 89.0 cm/sec MV A max francheska 96.0 cm/sec MV E/A 0.93 MV dec time 0.24 sec Ao V2 max 165.9 cm/sec Ao max PG 11.0 mmHg Ao max PG (full) 3.9 mmHg LV V1 max PG 7.1 mmHg LV V1 max 132.9 cm/sec TR max francheska 233.3 cm/sec RVSP(TR) 24.8 mmHg RAP systole 3.0 mmHg
[2017-07-24] VITALS (7 sets, daily range): BP systolic 162–190; BP diastolic 86–99; PULSE 66–73; TEMP 36.7–37.1; O2SAT 92–96
[2017-07-24] MEDS ORDERED: NURSING VERBAL MED ORDER ONE
[2017-07-24] MEDS: CALCIUM CARBONATE 500 MG CHEWABLE PO PRN ×3 (00:39→21:08)
[2017-07-24] MEDS: SODIUM CHLORIDE 0.9% 1000ML 1,000 ML IV SCH ×2 (05:24→15:54)
[2017-07-24] MEDS: ASPIRIN 81 MG ECTAB PO SCH (07:38)
[2017-07-24] MEDS: ATORVASTATIN 40 MG TAB PO SCH (07:39)
[2017-07-24] MEDS: NIFEdipine 30 MG CR TAB PO SCH (07:40)
[2017-07-24] MEDS: ENOXAPARIN 40 MG/0.4 ML SYR SC SCH (07:40)
[2017-07-24 09:19] LABS: BASO % 0.2 %; BASO ABS # 0.01 K/uL (0-0.2); COMPLETE YES; EOS % 1.3 %; HEMATOCRIT 41.1 % (42-52); IG% 0.2 %; LYMPH % 25.5 %; LYMPH ABS # 1.39 K/uL (1.2-3.4); MEAN CORPUSCULAR HEMOGLOBIN 30.3 pg (25-34); MEAN CORPUSCULAR HGB CONC 34.1 g/dl (32-36); MEAN PLATELET VOLUME 11.7 fL (7.4-10.4); MONO % 6.2 %; NEUT % 66.6 %; PLATELET COUNT 162 K/uL (130-400); RED BLOOD COUNT 4.62 M/uL (4.7-6.1); WHITE BLOOD COUNT 5.45 K/uL (4.8-10.8)
[2017-07-24 09:50] LABS: BUN/CREATININE RATIO 10.9 (10-20); CALCIUM 8.8 mg/dl (8.5-10.1); CREATININE 1.05 mg/dl (0.60-1.40); POTASSIUM 3.7 mmol/L (3.5-5.1)
[2017-07-24 09:53] LABS: CHOLESTEROL/HDL RATIO 6.9
--- NOTE | 2017-07-24 11:34 | Neurology Progress Notes ---
Neurology Progress Note Date of Service Jul 24, 2017. Subjective Patient is a little worse with increased weakness of his arm and leg compared to yesterday. He has no new pain or headache. Echocardiogram was unremarkable. Blood pressure still elevated at 170 8/96. Triglycerides and cholesterol are elevated. Objective Date Time Temp Pulse Resp B/P (MAP) Pulse Ox O2 Delivery O2 Flow Rate FiO2 07/24/17 08:00 36.9 66 16 178/96 (123) 96 Room Air 07/24/17 08:00 95 Room Air 07/24/17 04:00 Room Air 07/24/17 03:43 36.7 68 16 179/94 (122) 95 Room Air 07/23/17 23:59 Room Air 07/23/17 23:46 36.9 70 18 163/88 (113) 96 Room Air 07/23/17 20:00 Room Air 07/23/17 19:23 36.9 62 16 188/99 (128) 96 Room Air 07/23/17 18:05 179/94 (122) 07/23/17 16:02 37.0 64 18 193/98 (129) 97 Room Air 07/23/17 16:00 Room Air 07/23/17 12:00 Room Air Last 24 Hours Test 07/23/17 19:49 07/24/17 08:53 Bedside Glucose 101 mg/dl White Blood Count 5.45 K/uL Red Blood Count 4.62 M/uL Hemoglobin 14.0 g/dL Hematocrit 41.1 % Mean Corpuscular Volume 89.0 fL Mean Corpuscular Hemoglobin 30.3 pg Mean Corpuscular Hemoglobin Concent 34.1 g/dl Platelet Count 162 K/uL Mean Platelet Volume 11.7 fL Neutrophils (%) (Auto) 66.6 % Lymphocytes (%) (Auto) 25.5 % Monocytes (%) (Auto) 6.2 % Eosinophils (%) (Auto) 1.3 % Basophils (%) (Auto) 0.2 % Neutrophils # (Auto) 3.63 K/uL Lymphocytes # (Auto) 1.39 K/uL Monocytes # (Auto) 0.34 K/uL Eosinophils # (Auto) 0.07 K/uL Basophils # (Auto) 0.01 K/uL RDW Standard Deviation 44.5 fL RDW Coefficient of Variation 13.7 % Immature Granulocyte % (Auto) 0.2 % Immature Granulocyte # (Auto) 0.01 K/uL Sodium Level 138 mmol/L Potassium Level 3.7 mmol/L Chloride Level 106 mmol/L Carbon Dioxide Level 24 mmol/L Anion Gap 8.0 mmol/L Blood Urea Nitrogen 11 mg/dl Creatinine 1.05 mg/dl Est Creatinine Clear Calc Drug Dose 84.1 ml/min Estimated GFR () 89.6 Estimated GFR (Non- 77.3 BUN/Creatinine Ratio 10.9 Random Glucose 126 mg/dl Calcium Level 8.8 mg/dl Triglycerides Level 161 mg/dl Cholesterol Level 222 mg/dl HDL Cholesterol 32 mg/dl LDL Cholesterol, Calculated 158 mg/dl VLDL Cholesterol, Calculated 32 mg/dl Cholesterol/HDL Ratio 6.9 Exam: He is awake and alert. He has some slight dysarthria but no significant aphasia. Mood and affect are normal appropriate. His thought processes are intact without significant encephalopathy. Extraocular eye muscles are intact without nystagmus. He has a dense facial droop on the right. He is near plegic in his right arm and has significant weakness in his right leg. Current Inpatient Medications Medications (Trade) Dose Ordered Sig/Katie Route Start Time Stop Time Status Last Admin Dose Admin Ioversol (Optiray 320) 100 ml UD PRN IV 07/23/17 06:00 07/27/17 05:59 Atorvastatin Calcium (Lipitor Tab) 40 mg QAM PO 07/23/17 10:00 08/22/17 09:59 07/24/17 07:39 40 MG Aspirin (Ecotrin Tab) 81 mg QAM PO 07/23/17 10:00 08/22/17 09:59 07/24/17 07:38 81 MG Miscellaneous Information (Pharmacist Discharge Med Rec Consult) 1 ea UD PRN N/A 07/23/17 08:00 08/22/17 07:59 Sodium Chloride 1,000 ml @ 100 mls/hr Q10H IV 07/23/17 09:30 08/22/17 09:29 07/24/17 05:24 100 MLS/HR Enoxaparin Sodium (Lovenox Inj) 40 mg QAM SC 07/23/17 10:00 08/22/17 09:59 07/24/17 07:40 40 MG Ondansetron HCl (Zofran Inj) 4 mg Q6H PRN IV 07/23/17 08:00 08/22/17 07:59 Nitroglycerin (Nitrostat Tab) 0.4 mg UD PRN SL 07/23/17 08:00 08/22/17 07:59 Nifedipine (Procardia Xl Tab) 30 mg QAM PO 07/24/17 09:00 08/23/17 08:59 07/24/17 07:40 30 MG Labetalol HCl (Normodyne IV) 20 mg Q3H PRN IV 07/23/17 12:00 08/22/17 11:59 07/23/17 12:29 20 MG Calcium Carbonate (Tums Chew Tab) 500 mg Q6H PRN PO 07/24/17 00:30 08/23/17 00:29 07/24/17 07:38 500 MG Impression 1. Acute to subacute left pontine ischemic stroke He has worsened with his right-sided weakness and dysarthria compared to yesterday. He may be experiencing some edema around the stroke making him worse or he could have extended is infarct. MRI of the brain shows a 9 millimeter ischemic event in the left rebeca. Etiology of this is likely secondary to acute, significant hypertension. He may have some risk factor with mildly elevated glucose. His lipid status is unknown. He is a nonsmoker. 2. Hypertension, still not adequately controlled. This is a significant issue currently. Plan 1. 81 milligram aspirin tablet daily. There is no indication for anticoagulation in this patient. 2. Control blood pressure keeping a mean arterial pressure approximately 100. 3. Control glucose, to a fasting level of closer to 100. 4. Initiate high-dose statin 5. Physical, occupational, and speech therapy consults 6. Repeat MRI of the brain. A repeat CT scan will not helped with determining extension or edema in the rebeca, although it which show hemorrhage. I spoke with Dr. Bragg regarding this case
[2017-07-24] MEDS ORDERED: LISINOPRIL 5 MG TAB PO ONE (11:45)
[2017-07-24] MEDS ORDERED: LISINOPRIL 2.5 MG TAB PO ONE (12:00)
--- NOTE | 2017-07-24 13:46 | DIAGNOSTIC IMAGING REPORT ---
BRAIN WITHOUT CONTRAST HISTORY: 57 years-old Male eval for progression of anterior rebeca cva acute weakness of the right arm and right leg with hypertension. 9 mm focus of signal abnormality within the left anterior rebeca suggesting small infarction seen on comparison study COMPARISON: Brain MR 07/23/2017 TECHNIQUE: Multiple and multisequence MRI the brain was obtained without the use of contrast. FINDINGS: 10 x 8 mm focus of restricted diffusion with decreased signal on ADC map and increased signal on the T2/FLAIR images is compatible with acute infarction with the signal on the FLAIR images appearing unchanged from comparison study, however the area of restricted diffusion has progressed from comparison, previously measuring 5 x 3 mm and now also appears more hyperintense. No additional foci of restricted diffusion. The midline structures including the corpus callosum, brainstem, optic chiasm, pituitary and pineal glands are unremarkable in the sagittal T1 series. Mild degenerative changes of the imaged upper cervical spine. There is no acute intracranial hemorrhage, midline shift or abnormal extra-axial collections. Minimal punctate foci of T2/FLAIR prolongation within the subcortical and periventricular white matter suggests chronic microvascular changes. The major flow voids at the level of the skull base appear patent. Mastoid air cells are clear. Paranasal sinuses are also generally clear. Scalp, soft tissues and calvarium are unremarkable. IMPRESSION: 1. Acute infarction of the left anterior rebeca is noted measuring up to 10 x 8 mm. The area of signal abnormality on the T2/FLAIR images remains the same, however the area of restricted diffusion has increased and size and signal intensity from comparison study 07/24/2017 likely reflecting evolution from ischemic to infarcted tissue. No associated hemorrhage. 2. Mild background chronic microvascular ischemic changes. The above report was generated using voice recognition software. It may contain grammatical, syntax or spelling errors. Electronically signed by: Laith Barber M.D. 07/24/2017 1:45 PM Dictated Date/Time: 07/24/2017 1:37 PM
--- NOTE | 2017-07-24 16:47 | Progress Note ---
Subjective Date of Service: Jul 24, 2017. Subjective pt feels his right arm and leg have become more weakened from one day ago, he has no headache or visual changes Problem List Medical Problems: (1) Hypertensive crisis Status: Acute (2) TIA (transient ischemic attack) Status: Acute Review of Systems Constitutional: No fever, No chills, No weakness Cardiac: No chest pain, No edema Abdomen: No pain, No nausea, No vomiting Musculoskeletal: No joint pain, No muscle pain Neurologic: + paralysis, + weakness Psychiatric: + depression symptoms, No anxiety Objective Vital Signs Date Time Temp Pulse Resp B/P (MAP) Pulse Ox O2 Delivery O2 Flow Rate FiO2 07/24/17 16:31 37.1 70 18 173/94 (120) 92 Room Air 07/24/17 16:00 95 Room Air 07/24/17 12:00 95 Room Air 07/24/17 11:02 36.7 70 20 190/99 (129) 95 Room Air 07/24/17 08:00 36.9 66 16 178/96 (123) 96 Room Air 07/24/17 08:00 95 Room Air 07/24/17 04:00 Room Air 07/24/17 03:43 36.7 68 16 179/94 (122) 95 Room Air 07/23/17 23:59 Room Air 07/23/17 23:46 36.9 70 18 163/88 (113) 96 Room Air 07/23/17 20:00 Room Air 07/23/17 19:23 36.9 62 16 188/99 (128) 96 Room Air 07/23/17 18:05 179/94 (122) Physical Exam General Appearance: WD/WN, + mild distress Eyes: PERRL, EOMI Neck: supple, no JVD Respiratory/Chest: chest non-tender, lungs clear, normal breath sounds Cardiovascular: regular rate, rhythm, no murmur Abdomen: normal bowel sounds, non tender, soft Extremities: + pertinent finding (right arm is 4/5 and right leg 3/5 with weakness, left is at full sternght) Skin: normal color, warm/dry Laboratory Results Last 24 Hours Test 07/23/17 19:49 07/24/17 08:53 07/24/17 11:01 07/24/17 16:00 Bedside Glucose 101 mg/dl 102 mg/dl 100 mg/dl White Blood Count 5.45 K/uL Red Blood Count 4.62 M/uL Hemoglobin 14.0 g/dL Hematocrit 41.1 % Mean Corpuscular Volume 89.0 fL Mean Corpuscular Hemoglobin 30.3 pg Mean Corpuscular Hemoglobin Concent 34.1 g/dl Platelet Count 162 K/uL Mean Platelet Volume 11.7 fL Neutrophils (%) (Auto) 66.6 % Lymphocytes (%) (Auto) 25.5 % Monocytes (%) (Auto) 6.2 % Eosinophils (%) (Auto) 1.3 % Basophils (%) (Auto) 0.2 % Neutrophils # (Auto) 3.63 K/uL Lymphocytes # (Auto) 1.39 K/uL Monocytes # (Auto) 0.34 K/uL Eosinophils # (Auto) 0.07 K/uL Basophils # (Auto) 0.01 K/uL RDW Standard Deviation 44.5 fL RDW Coefficient of Variation 13.7 % Immature Granulocyte % (Auto) 0.2 % Immature Granulocyte # (Auto) 0.01 K/uL Sodium Level 138 mmol/L Potassium Level 3.7 mmol/L Chloride Level 106 mmol/L Carbon Dioxide Level 24 mmol/L Anion Gap 8.0 mmol/L Blood Urea Nitrogen 11 mg/dl Creatinine 1.05 mg/dl Est Creatinine Clear Calc Drug Dose 84.1 ml/min Estimated GFR () 89.6 Estimated GFR (Non- 77.3 BUN/Creatinine Ratio 10.9 Random Glucose 126 mg/dl Calcium Level 8.8 mg/dl Triglycerides Level 161 mg/dl Cholesterol Level 222 mg/dl HDL Cholesterol 32 mg/dl LDL Cholesterol, Calculated 158 mg/dl VLDL Cholesterol, Calculated 32 mg/dl Cholesterol/HDL Ratio 6.9 Assessment and Plan 57yo male with acute left rebeca CVA, not a candidate for TPA, likely undiagnosed glucose intolerance or diabetes Left rebeca cva, due to worsening symptoms MRI brain repeated 07/24 with evolution from ischemia to infarct but no progression. ECHO, r/o source of embolus. Asa 81mg daily. Lipitor 80mg daily. PT, OT evals. Neurology consultation following HTn will target blood pressure control and with concerns for diabetes will start Bishop I hyperglycemia - hemoglobin a1c 6.3 but has not tried any diet changes, will continue to monitor DVT proph - lovenox. code status - discussed extensively - he wants level 5 DNR; he would not even want short-term intubation/mechanical ventilation conversation witnessed by 2 guards as well
[2017-07-25] VITALS (11 sets, daily range): BP systolic 161–188; BP diastolic 48–105; PULSE 64–75; TEMP 36.8–37.3; O2SAT 93–98
[2017-07-25] MEDS: SODIUM CHLORIDE 0.9% 1000ML 1,000 ML IV SCH ×3 (01:46→21:49)
[2017-07-25] MEDS: ATORVASTATIN 40 MG TAB PO SCH (07:53)
[2017-07-25] MEDS: ASPIRIN 81 MG ECTAB PO SCH (07:53)
[2017-07-25] MEDS: NIFEdipine 30 MG CR TAB PO SCH (07:54)
[2017-07-25] MEDS: ENOXAPARIN 40 MG/0.4 ML SYR SC SCH (07:54)
--- NOTE | 2017-07-25 07:56 | Neurology Progress Notes ---
Neurology Progress Note Date of Service Jul 25, 2017. Subjective Patient has no complaint of pain or headache. He is not dizzy and has no new vision problems or confusion. He feels that his right side is a little weaker this morning than yesterday. He cannot move his arm at all and he can't wiggle his toes anymore he says. MRI of the brain showed a more distinct, 10 mm, pontine stroke of an ischemic nature probably with some very mild edema surrounding. I reviewed this film and report and discuss the report with the patient. Blood pressure has been a little bit better this last 24 hours than the 24 hours previous. Objective Date Time Temp Pulse Resp B/P (MAP) Pulse Ox O2 Delivery O2 Flow Rate FiO2 07/25/17 04:00 Room Air 07/25/17 03:52 36.9 68 18 164/87 (112) 98 Room Air 07/25/17 01:29 172/92 (118) 07/25/17 00:12 36.8 67 18 188/84 (118) 96 Room Air 07/24/17 23:59 Room Air 07/24/17 20:00 Room Air 07/24/17 19:10 36.8 73 18 162/86 (111) 94 Room Air 07/24/17 16:31 37.1 70 18 173/94 (120) 92 Room Air 07/24/17 16:00 95 Room Air 07/24/17 12:00 95 Room Air 07/24/17 11:02 36.7 70 20 190/99 (129) 95 Room Air 07/24/17 08:00 36.9 66 16 178/96 (123) 96 Room Air 07/24/17 08:00 95 Room Air Last 24 Hours Test 07/24/17 08:53 07/24/17 11:01 07/24/17 16:00 White Blood Count 5.45 K/uL Red Blood Count 4.62 M/uL Hemoglobin 14.0 g/dL Hematocrit 41.1 % Mean Corpuscular Volume 89.0 fL Mean Corpuscular Hemoglobin 30.3 pg Mean Corpuscular Hemoglobin Concent 34.1 g/dl Platelet Count 162 K/uL Mean Platelet Volume 11.7 fL Neutrophils (%) (Auto) 66.6 % Lymphocytes (%) (Auto) 25.5 % Monocytes (%) (Auto) 6.2 % Eosinophils (%) (Auto) 1.3 % Basophils (%) (Auto) 0.2 % Neutrophils # (Auto) 3.63 K/uL Lymphocytes # (Auto) 1.39 K/uL Monocytes # (Auto) 0.34 K/uL Eosinophils # (Auto) 0.07 K/uL Basophils # (Auto) 0.01 K/uL RDW Standard Deviation 44.5 fL RDW Coefficient of Variation 13.7 % Immature Granulocyte % (Auto) 0.2 % Immature Granulocyte # (Auto) 0.01 K/uL Sodium Level 138 mmol/L Potassium Level 3.7 mmol/L Chloride Level 106 mmol/L Carbon Dioxide Level 24 mmol/L Anion Gap 8.0 mmol/L Blood Urea Nitrogen 11 mg/dl Creatinine 1.05 mg/dl Est Creatinine Clear Calc Drug Dose 84.1 ml/min Estimated GFR () 89.6 Estimated GFR (Non- 77.3 BUN/Creatinine Ratio 10.9 Random Glucose 126 mg/dl Calcium Level 8.8 mg/dl Triglycerides Level 161 mg/dl Cholesterol Level 222 mg/dl HDL Cholesterol 32 mg/dl LDL Cholesterol, Calculated 158 mg/dl VLDL Cholesterol, Calculated 32 mg/dl Cholesterol/HDL Ratio 6.9 Bedside Glucose 102 mg/dl 100 mg/dl Imaging: BRAIN WITHOUT CONTRAST HISTORY: 57 years-old Male eval for progression of anterior rebeca cva acute weakness of the right arm and right leg with hypertension. 9 mm focus of signal abnormality within the left anterior rebeca suggesting small infarction seen on comparison study COMPARISON: Brain MR 07/23/2017 TECHNIQUE: Multiple and multisequence MRI the brain was obtained without the use of contrast. FINDINGS: 10 x 8 mm focus of restricted diffusion with decreased signal on ADC map and increased signal on the T2/FLAIR images is compatible with acute infarction with the signal on the FLAIR images appearing unchanged from comparison study, however the area of restricted diffusion has progressed from comparison, previously measuring 5 x 3 mm and now also appears more hyperintense. No additional foci of restricted diffusion. The midline structures including the corpus callosum, brainstem, optic chiasm, pituitary and pineal glands are unremarkable in the sagittal T1 series. Mild degenerative changes of the imaged upper cervical spine. There is no acute intracranial hemorrhage, midline shift or abnormal extra-axial collections. Minimal punctate foci of T2/FLAIR prolongation within the subcortical and periventricular white matter suggests chronic microvascular changes. The major flow voids at the level of the skull base appear patent. Mastoid air cells are clear. Paranasal sinuses are also generally clear. Scalp, soft tissues and calvarium are unremarkable. IMPRESSION: 1. Acute infarction of the left anterior rebeca is noted measuring up to 10 x 8 mm. The area of signal abnormality on the T2/FLAIR images remains the same, however the area of restricted diffusion has increased and size and signal intensity from comparison study 07/24/2017 likely reflecting evolution from ischemic to infarcted tissue. No associated hemorrhage. 2. Mild background chronic microvascular ischemic changes. The above report was generated using voice recognition software. It may contain grammatical, syntax or spelling errors. Electronically signed by: Laith Barber M.D. 07/24/2017 1:45 PM Exam: He is awake and alert. Speech has some slight dysarthria but no significant aphasia. Mood and affect seem normal appropriate. Thought processes are grossly intact for conversation. He is pleasant and cooperative. Extraocular eye muscles are intact without nystagmus. He has a facial droop on the right with some slight movement voluntarily, and can't puff his cheeks out of hold air. Tongue is midline. Eye closure and opening is normal. Right upper extremity is plegic. Left arm and leg are 5/5 diffusely. Right lower extremity is 4/5 proximally and 1/5 distally Toes are upgoing on plantar stimulation on the right and down on the left. Sensory exam is unremarkable bilaterally. Current Inpatient Medications Medications (Trade) Dose Ordered Sig/Katie Route Start Time Stop Time Status Last Admin Dose Admin Ioversol (Optiray 320) 100 ml UD PRN IV 07/23/17 06:00 07/27/17 05:59 Aspirin (Ecotrin Tab) 81 mg QAM PO 07/23/17 10:00 08/22/17 09:59 07/24/17 07:38 81 MG Miscellaneous Information (Pharmacist Discharge Med Rec Consult) 1 ea UD PRN N/A 07/23/17 08:00 08/22/17 07:59 Sodium Chloride 1,000 ml @ 100 mls/hr Q10H IV 07/23/17 09:30 08/22/17 09:29 07/25/17 01:46 100 MLS/HR Enoxaparin Sodium (Lovenox Inj) 40 mg QAM SC 07/23/17 10:00 08/22/17 09:59 07/24/17 07:40 40 MG Ondansetron HCl (Zofran Inj) 4 mg Q6H PRN IV 07/23/17 08:00 08/22/17 07:59 Nitroglycerin (Nitrostat Tab) 0.4 mg UD PRN SL 07/23/17 08:00 08/22/17 07:59 Nifedipine (Procardia Xl Tab) 30 mg QAM PO 07/24/17 09:00 08/23/17 08:59 07/24/17 07:40 30 MG Labetalol HCl (Normodyne IV) 20 mg Q3H PRN IV 07/23/17 12:00 08/22/17 11:59 07/23/17 12:29 20 MG Calcium Carbonate (Tums Chew Tab) 500 mg Q6H PRN PO 07/24/17 00:30 08/23/17 00:29 07/24/17 21:08 500 MG Atorvastatin Calcium (Lipitor Tab) 80 mg QAM PO 07/25/17 09:00 08/22/17 09:59 Lisinopril (Zestril Tab) 2.5 mg QAM PO 07/25/17 09:00 08/24/17 08:59 Impression 1. Acute left pontine ischemic stroke. This is a " classic" pure motor lacunar stroke He has worsened with his right-sided weakness and dysarthria compared to admission which is likely secondary to edema surrounding the infarct. A little edema in the rebeca can make him clinically much worse. In my opinion, he has not extended the size of his stroke. MRI of the brain shows a 10 millimeter ischemic event in the mid-left rebeca. Etiology of this is likely secondary to acute, significant hypertension. He may have some risk factor with mildly elevated glucose. His lipid status is unknown. He is a nonsmoker. 2. Hypertension, still not adequately controlled. This morning, blood pressure was 169/105 (mean arterial pressure of 126) This is a significant issue currently. 3. Elevated cholesterol and triglycerides. Plan 1. Continue 81 milligram aspirin tablet daily. There is no indication for anticoagulation in this patient. 2. Control blood pressure keeping a mean arterial pressure approximately 100. 3. Control glucose, to a fasting level of closer to 100. 4. Initiate high-dose statin 5. Physical, occupational, and speech therapy consults. Ideally, he would be a candidate for [facility] for intensive physical and occupational therapy. I spoke with Dr. Bragg regarding this case
[2017-07-25] MEDS ORDERED: LISINOPRIL 2.5 MG TAB PO ONE (09:00)
[2017-07-25] MEDS ORDERED: LISINOPRIL 2.5 MG TAB PO SCH (09:00)
--- NOTE | 2017-07-25 17:19 | Progress Note ---
Subjective Date of Service: Jul 25, 2017. Subjective pt has fairly significant right facial droop, right leg and arm weakness. no other complaints Problem List Medical Problems: (1) Hypertensive crisis Status: Acute (2) TIA (transient ischemic attack) Status: Acute Review of Systems Constitutional: + weakness, + fatigue, No fever, No chills Respiratory: No cough, No shortness of breath Cardiac: No chest pain, No edema Abdomen: No pain, No nausea, No vomiting, No diarrhea Musculoskeletal: No joint pain, No muscle pain Neurologic: + paralysis, + weakness, + balance problems, No memory loss Psychiatric: No depression symptoms, No anhedonism Objective Vital Signs Date Time Temp Pulse Resp B/P (MAP) Pulse Ox O2 Delivery O2 Flow Rate FiO2 07/25/17 16:00 95 Room Air 07/25/17 15:50 37.3 71 18 163/93 (116) 93 Room Air 07/25/17 12:00 95 Room Air 07/25/17 12:00 73 07/25/17 10:50 37.2 66 18 161/90 (113) 95 Room Air 07/25/17 08:00 95 Room Air 07/25/17 07:55 37.1 64 18 182/94 (123) 95 Room Air 07/25/17 07:50 169/105 (126) 07/25/17 04:00 Room Air 07/25/17 03:52 36.9 68 18 164/87 (112) 98 Room Air 07/25/17 01:29 172/92 (118) 07/25/17 00:12 36.8 67 18 188/84 (118) 96 Room Air 07/24/17 23:59 Room Air 07/24/17 20:00 Room Air 07/24/17 19:10 36.8 73 18 162/86 (111) 94 Room Air Physical Exam General Appearance: WD/WN, + mild distress Eyes: PERRL, EOMI Neck: supple, no JVD Respiratory/Chest: chest non-tender, lungs clear Cardiovascular: regular rate, rhythm, no murmur Abdomen: normal bowel sounds, non tender, soft Extremities: no pedal edema, no calf tenderness Neurologic/Psychiatric: alert, oriented x 3, + abnormal director long term care II-XII, + abnormal gait, + motor weakness Skin: normal color, warm/dry Laboratory Results Last 24 Hours Test 07/25/17 07:10 12/6/17 11:13 07/25/17 16:31 Bedside Glucose 107 mg/dl 96 mg/dl 106 mg/dl Assessment and Plan 57yo male with acute left rebeca CVA, not a candidate for TPA, likely undiagnosed glucose intolerance or diabetes Left rebeca cva, MRI brain repeated 07/24 with evolution from ischemia to infarct but no progression. ECHO, r/o source of embolus. Asa 81mg daily. Lipitor 80mg daily. PT, OT evals. Neurology consultation following recommends rehab, I spoke to [facility], they only have PT once a month, I left my phone number for message regarding how to get a patient PT/Ot for his stroke deficits, awaiting discussion with detention physician HTn will target blood pressure control and with concerns for diabetes will started lisinopril and increased dose 07/25 hyperglycemia - hemoglobin a1c 6.3 but has not tried any diet changes, will continue to monitor has been controlled with diet, education given and will need reinforcement DVT proph - lovenox. code status - discussed extensively - he wants level 5 DNR; he would not even want short-term intubation/mechanical ventilation conversation witnessed by 2 guards as well
[2017-07-25] MEDS: CALCIUM CARBONATE 500 MG CHEWABLE PO PRN (21:44)
[2017-07-26 03:30] VITALS: BP 167/92; PULSE 68; TEMP 37; O2SAT 95
[2017-07-26 07:25] VITALS: BP 170/91; PULSE 66; O2SAT 94
[2017-07-26] MEDS: NIFEdipine 30 MG CR TAB PO SCH (07:37)
[2017-07-26] MEDS: SODIUM CHLORIDE 0.9% 1000ML 1,000 ML IV SCH (07:37)
[2017-07-26] MEDS: ATORVASTATIN 40 MG TAB PO SCH (07:38)
[2017-07-26] MEDS: ASPIRIN 81 MG ECTAB PO SCH (07:38)
[2017-07-26] MEDS: ENOXAPARIN 40 MG/0.4 ML SYR SC SCH (07:39)
[2017-07-26 08:00] VITALS: O2SAT 95
[2017-07-26] MEDS ORDERED: LISINOPRIL 5 MG TAB PO SCH (09:00)
[2017-07-26 09:22] LABS: HEMATOCRIT 42.1 % (42-52); MEAN CELL VOLUME 88.6 fL (80-100); MEAN CORPUSCULAR HEMOGLOBIN 29.3 pg (25-34); MEAN PLATELET VOLUME 11.8 fL (7.4-10.4); PLATELET COUNT 165 K/uL (130-400); RED BLOOD COUNT 4.75 M/uL (4.7-6.1); WHITE BLOOD COUNT 6.14 K/uL (4.8-10.8)
--- NOTE | 2017-07-26 09:29 | Medical Student: [facility] ---
Med Student Progress Note Date of Service Jul 26, 2017. Subjective Pt evaluation today including: conversation w/ patient, chart review, lab review The patient states he is doing worse then yesterday. He says he thinks his right leg is weaker then yesterday. Today, he denies headache, confusion, dizziness, and vision changes. He states that when he tries to wink one eye with the other open (close right eye and keep left eye open), that he is less able to do that then yesterday. Review of Systems Eyes: No worsening of vision, No eye pain, No diplopia Cardiac: No chest pain, No edema Musculoskeletal: No joint pain, No muscle pain, No swelling Neurologic: + weakness Psychiatric: No depression symptoms Skin: No rash, No new/changing skin lesions, No color change Objective Vital Signs Date Time Temp Pulse Resp B/P (MAP) Pulse Ox O2 Delivery O2 Flow Rate FiO2 07/26/17 07:25 66 16 170/91 (117) 94 Room Air 07/26/17 04:00 Room Air 07/26/17 03:30 37.0 68 18 167/92 (117) 95 Room Air 07/26/17 00:00 Room Air 07/25/17 23:30 37.2 75 18 188/88 (121) 95 Room Air 07/25/17 20:00 Room Air 07/25/17 16:00 95 Room Air 07/25/17 15:50 37.3 71 18 163/93 (116) 93 Room Air 07/25/17 12:00 95 Room Air 07/25/17 12:00 73 07/25/17 10:50 37.2 66 18 161/90 (113) 95 Room Air Elevated Blood pressure today; mean arterial pressure today 117 Physical Exam General Appearance: WD/WN, no apparent distress, + obese Eyes: bilateral eyes normal inspection, bilateral eyes PERRL, bilateral eyes EOMI ENT: hearing grossly normal, pharynx normal Respiratory/Chest: no respiratory distress, no accessory muscle use Cardiovascular: regular rate, rhythm, no edema, no gallop, no JVD, no murmur Extremities: no pedal edema, no calf tenderness, + pertinent finding ( decreased movement on right) Neurologic/Psychiatric: + facial droop (most notably elicited on smile), + motor weakness (See below) Skin: normal color, warm/dry, no rash Comments: Neurologic Exam: Mental status: Patient is alert, attentive, and fully cooperative Orientation- Oriented to name, location, and time. Memory not assessed today. Language - spontaneous speech of normal fluency, rate, and abundance. No paraphasic errors or neologisms. No grammar errors present. Comprehension not tested. Logic and abstraction not tested. Patient denied delusions and hallucinations Mood - appropriate Cranial nerves- 1 not tested 2 visual albarran intact 3,4,6 normal eye movement to all directions 5 no trigeminal neuropathy 7 Abnormal - moderate right face weakness 8 hearing grossly intact 9, 10 - normal palatal elevation 11- normal shoulder shrug 12 - no tongue deviation on protrusion Reflexes: Deep tendon reflexes normal bilaterally. Plantar reflex reveals Upgoing Toe on right (normal on left) Motor strength: Normal strength in left arm and left leg. Right arm 1/5 strength with some flicker of muscle activity (some proximal limb activity and some minor finger activity). Right leg is 4+/5 strength proximally, and 3/5 strength distally. Sensory: Intact in all 4 extremities both distally and proximally. Coordination impaired on lower left extremity appearing secondary to weakness Other findings of significance: Extremely mild dysarthria, with elicited deficit of muscles of facial expression on right side when asked to smile, puff out checks, one eye wink. Laboratory Results Last 24 Hours Test 07/25/17 11:13 07/25/17 16:31 07/25/17 20:56 07/26/17 06:41 Bedside Glucose 96 mg/dl 106 mg/dl 101 mg/dl Test 07/26/17 06:46 Bedside Glucose 102 mg/dl Medications Current Inpatient Medications Medications (Trade) Dose Ordered Sig/Katie Route Start Time Stop Time Status Last Admin Dose Admin Ioversol (Optiray 320) 100 ml UD PRN IV 07/23/17 06:00 07/27/17 05:59 Aspirin (Ecotrin Tab) 81 mg QAM PO 07/23/17 10:00 08/22/17 09:59 07/26/17 07:38 81 MG Miscellaneous Information (Pharmacist Discharge Med Rec Consult) 1 ea UD PRN N/A 07/23/17 08:00 08/22/17 07:59 Sodium Chloride 1,000 ml @ 100 mls/hr Q10H IV 07/23/17 09:30 08/22/17 09:29 07/26/17 07:37 100 MLS/HR Enoxaparin Sodium (Lovenox Inj) 40 mg QAM SC 07/23/17 10:00 08/22/17 09:59 07/26/17 07:39 40 MG Ondansetron HCl (Zofran Inj) 4 mg Q6H PRN IV 07/23/17 08:00 08/22/17 07:59 Nitroglycerin (Nitrostat Tab) 0.4 mg UD PRN SL 07/23/17 08:00 08/22/17 07:59 Nifedipine (Procardia Xl Tab) 30 mg QAM PO 07/24/17 09:00 08/23/17 08:59 07/26/17 07:37 30 MG Labetalol HCl (Normodyne IV) 20 mg Q3H PRN IV 07/23/17 12:00 08/22/17 11:59 07/23/17 12:29 20 MG Calcium Carbonate (Tums Chew Tab) 500 mg Q6H PRN PO 07/24/17 00:30 08/23/17 00:29 07/25/17 21:44 500 MG Atorvastatin Calcium (Lipitor Tab) 80 mg QAM PO 07/25/17 09:00 08/22/17 09:59 07/26/17 07:38 80 MG Lisinopril (Zestril Tab) 5 mg QAM PO 07/26/17 09:00 08/25/17 08:59 07/26/17 07:38 5 MG Assessment and Plan Assessment and Plan: Impression: Patient is a 57 year old male presenting 3 days ago with an acute left pontine ischemic stroke likely secondary to hypertensive crisis. He has a pure motor stroke that has caused right-sided muscle weakness. The worsening of his symptoms and exam findings yesterday and today as opposed to admission are likely do to edema and inflammatory sequela of the initial infarct. This is supported by an enlargement of the lesion on serial MRI from 9 mm to 10 mm. The patient still has significant hypertension today. A/P: Left pontine ischemic stroke -continue aspirin 81 mg daily -status slightly improved (increased strength in right arm), but still far from his baseline before the event -Patient would be a good candidate for physical therapy, occupational therapy and potentially speech therapy. Dyslipidemia -Continue Atorvastatin 80mg Hypertension -Blood pressure elevated today at 170/91, MAP 117. BP has remained high during this hospital stay. -On Lisinopril 5mg daily, nifedipine 30mg daily, and Labetalol 20mg Q3hr PRN IV, -Continue to titrate blood pressure medication until blood pressure within acceptable range
--- NOTE | 2017-07-26 09:32 | Neurology Progress Notes ---
Neurology Progress Note Date of Service Jul 26, 2017. Subjective Patient has no complaint of pain or headaches. He has no complaint of numbness or lack of feeling on the right side of his body. His vision is stable. Patient himself feels these either the same or slightly worse with movement of his right leg compared to yesterday. He also feels that he cannot close his right eye as well as before. Patient's blood pressure is 170/91 this morning, giving a mean arterial pressure of 117. According to nursing staff he has had no events or issues overnight and no seizures Objective Date Time Temp Pulse Resp B/P (MAP) Pulse Ox O2 Delivery O2 Flow Rate FiO2 07/26/17 07:25 66 16 170/91 (117) 94 Room Air 07/26/17 04:00 Room Air 07/26/17 03:30 37.0 68 18 167/92 (117) 95 Room Air 07/26/17 00:00 Room Air 07/25/17 23:30 37.2 75 18 188/88 (121) 95 Room Air 07/25/17 20:00 Room Air 07/25/17 16:00 95 Room Air 07/25/17 15:50 37.3 71 18 163/93 (116) 93 Room Air 07/25/17 12:00 95 Room Air 07/25/17 12:00 73 07/25/17 10:50 37.2 66 18 161/90 (113) 95 Room Air Last 24 Hours Test 07/25/17 11:13 07/25/17 16:31 07/25/17 20:56 07/26/17 06:41 Bedside Glucose 96 mg/dl 106 mg/dl 101 mg/dl Test 07/26/17 06:46 Bedside Glucose 102 mg/dl Exam: He is awake and alert. Speech is fairly good without any significant dysarthria today. He has no aphasia. Pupils are equal and reactive. Extraocular muscles are intact without nystagmus. He has no ptosis. When asked to close both his eyes together he can close the symmetrically and well. He can raise his eyebrows up furrowing his forehead. When he tries to close 1 eye or the other he feels that he is weak right eye. There is a facial droop on the right but he can move the corner of the mouth some. Tongue is midline. He can hold air in his cheeks somewhat. The patient has some 2/5 strength at the shoulder and the right arm and 1/5 strength distally in the right arm. The right leg has 3/5 strength proximally and 1/5 strength distally Toes are upgoing to plantar stimulation on the right. Sensory examination is intact bilaterally. Current Inpatient Medications Medications (Trade) Dose Ordered Sig/Katie Route Start Time Stop Time Status Last Admin Dose Admin Ioversol (Optiray 320) 100 ml UD PRN IV 07/23/17 06:00 07/27/17 05:59 Aspirin (Ecotrin Tab) 81 mg QAM PO 07/23/17 10:00 08/22/17 09:59 07/26/17 07:38 81 MG Sodium Chloride 1,000 ml @ 100 mls/hr Q10H IV 07/23/17 09:30 08/22/17 09:29 07/26/17 07:37 100 MLS/HR Enoxaparin Sodium (Lovenox Inj) 40 mg QAM SC 07/23/17 10:00 08/22/17 09:59 07/26/17 07:39 40 MG Ondansetron HCl (Zofran Inj) 4 mg Q6H PRN IV 07/23/17 08:00 08/22/17 07:59 Nitroglycerin (Nitrostat Tab) 0.4 mg UD PRN SL 07/23/17 08:00 08/22/17 07:59 Nifedipine (Procardia Xl Tab) 30 mg QAM PO 07/24/17 09:00 08/23/17 08:59 07/26/17 07:37 30 MG Labetalol HCl (Normodyne IV) 20 mg Q3H PRN IV 07/23/17 12:00 08/22/17 11:59 07/23/17 12:29 20 MG Calcium Carbonate (Tums Chew Tab) 500 mg Q6H PRN PO 07/24/17 00:30 08/23/17 00:29 07/25/17 21:44 500 MG Atorvastatin Calcium (Lipitor Tab) 80 mg QAM PO 07/25/17 09:00 08/22/17 09:59 07/26/17 07:38 80 MG Lisinopril (Zestril Tab) 5 mg QAM PO 07/26/17 09:00 08/25/17 08:59 12/7/17 07:38 5 MG Impression 1. Acute left pontine ischemic stroke 07-23-17. This is a " classic" pure motor lacunar stroke He has worsened with his right-sided weakness and dysarthria compared to admission, which is likely secondary to edema surrounding the infarct, but he is stabilized over the last 24 hours. In fact, he may be slightly better in the right upper extremity. A little edema in the rebeca can make him clinically much worse. In my opinion, he has not extended the size of his stroke. MRI of the brain shows a 10 millimeter ischemic event in the mid-left rebeca. Etiology of this is likely secondary to acute, significant hypertension. He may have some risk factor with mildly elevated glucose, and he has elevated lipids. He is a nonsmoker. 2. Hypertension, improved compared to admission, but still not adequately controlled. This morning, blood pressure was 170/91 (MAP of 117) 3. Elevated cholesterol and triglycerides. Plan 1. Continue 81 milligram aspirin tablet daily. There is no indication for anticoagulation in this patient. 2. Control blood pressure keeping a mean arterial pressure approximately 100. 3. Control glucose, to a fasting level of closer to 100. 4. Continue 80 milligrams of atorvastatin daily (he has a high-dose statin candidate) 5. Physical, occupational, and speech therapy consults. Ideally, he would be a candidate for [facility] for intensive physical and occupational therapy. I spoke with Dr. Bragg regarding this case I have no further neurologic testing or treatment recommendations to make on this patient otherwise. Please contact me if I can be of further assistance on this case.
[2017-07-26 09:57] LABS: CREATININE 0.96 mg/dl (0.60-1.40)
[2017-07-26 11:52] VITALS: BP 184/107; PULSE 78; TEMP 36.8; O2SAT 95
[2017-07-26 12:00] VITALS: O2SAT 95
[2017-07-26] MEDS ORDERED: LPT40 PO (12:51)
[2017-07-26] MEDS ORDERED: PRCSR30 PO (12:51)
[2017-07-26] MEDS ORDERED: LSN5 PO (12:51)
[2017-07-26] MEDS ORDERED: ASPEC81 PO (12:51)
--- NOTE | 2017-07-26 12:53 | Discharge Instructions ---
Discharge Instructions Date of Service Jul 26, 2017. Admission Reason for Admission: Stroke Discharge Discharge Diagnosis / Problem: left rebeca stroke Discharge Goals Goal(s): Diagnostic testing, Therapeutic intervention Activity Recommendations Activity Limitations: as noted below Lifting Limitations: gradually increase as tolerated (needs PT/OT ?speech therapy) 57yo male with acute left rebeca CVA, not a candidate for TPA, likely undiagnosed glucose intolerance or diabetes Left rebeca cva, MRI brain repeated 07/24 with evolution from ischemia to infarct but no progression. ECHO, r/o source of embolus. Asa 81mg daily. Lipitor 80mg daily. PT, OT evals. Neurology consultation following recommends rehab, I spoke to [facility], they only have PT once a month,PT/Ot speech therapy for his stroke deficits HTn still elevated, increased lisinopril on discharge and will likely recommend increasing this and nifedipine as able to hyperglycemia - hemoglobin a1c 6.3 has been controlled with diet, education given and will need reinforcement code status - discussed extensively - he wants level 5 DNR; he would not even want short-term intubation/mechanical ventilation Instructions / Follow-Up Instructions / Follow-Up Risk Factors for Stroke: You can reduce your chances of stroke by working with your medical provider to adopt a healthy lifestyle. Some specific ways to lower your chance of stroke are: * If you are a smoker, now is the time to stop smoking cigarettes * If you are diabetic, improve the control of your blood sugars * Avoid excessive amounts of alcohol * Control high blood pressure * Lose weight if you are overweight * Be sure to lead an active lifestyle * Eat a healthy diet low in salt, cholesterol and fat You should know about other risk factors for stroke that you are unable to control. These include: * Age 55 years or older * Male gender * Certain racial groups: , or / * Family History of Stroke, Mini stroke or Heart Attack * Sickle Cell Disease Follow Up: It is important for you to keep your follow up appointments with your medical provider. Current Hospital Diet Patient's current hospital diet: Diabetes Type 2 Diet Discharge Diet Recommended Diet: Diabetes Type 2 Diet Pending Studies Studies pending at discharge: no Laboratory Results Hemoglobin A1c Test 07/23/17 05:50 Range/Units Estimated Average Glucose 134 mg/dl Hemoglobin A1c 6.3 H 4.5-5.6 % Lipid Panel Test 07/24/17 08:53 Range/Units Triglycerides Level 161 H 0-150 mg/dl Cholesterol Level 222 H 0-200 mg/dl HDL Cholesterol 32 mg/dl Cholesterol/HDL Ratio 6.9 LDL Cholesterol, Calculated 158 mg/dl Medical Emergencies . Who to Call and When: Medical Emergencies: Call 911 immediately if you experience any of the following warning signs and symptoms of Stroke: * Sudden numbness or weakness of the face, arm or leg, especially on one side of the body * Sudden confusion, trouble speaking or understanding * Sudden trouble seeing in one or both eyes * Sudden trouble walking, dizziness, loss of balance or coordination * Sudden severe headache with no cause Do not delay calling 911 if you experience any warning signs or symptoms of a stroke. Delay in seeking medical attention may affect what treatments can be given to you. . Non-Emergent Contact Non-Emergency issues call your: Primary Care Provider, Neurologist (two weeks) Call Non-Emergent contact if: temperature is above 101, your pain is unusual for you . . "Provider Documentation" section prepared by Tom Bragg. . Stroke Core Measures Reason no t-PA for Stroke: Treatment not indicated Reason no antithrom by day 2: Treatment provided - N/A Reason no antithrom at D/C: Treatment provided - N/A Reason no statin at D/C: Treatment provided - N/A Reason no anticoag w/a fib: Treatment not indicated VTE Core Measure Inpt VTE Proph given/why not?: Enoxaparin (Lovenox)SQ
--- NOTE | 2017-07-26 13:02 | Discharge Summary ---
Discharge Summary Date of Service Jul 26, 2017. Discharge Summary Admission Date: Jul 23, 2017 at 08:02 Discharge Date: Jul 26, 2017 Discharge Disposition: Home Principal Diagnosis: left rebeca stroke Procedures: MRI brain 07/23: IMPRESSION: 1. Acute infarction of the left anterior rebeca is noted measuring up to 10 x 8 mm. The area of signal abnormality on the T2/FLAIR images remains the same, however the area of restricted diffusion has increased and size and signal intensity from comparison study 07/24/2017 likely reflecting evolution from ischemic to infarcted tissue. No associated hemorrhage. 2. Mild background chronic microvascular ischemic changes. Consultations: Dr Gomez Medication Reconciliation New Medications: Aspirin (Aspirin EC Low Dose) 81 Mg Ectab 81 MG PO QAM, #365 DOSE 6 Refills Atorvastatin (Atorvastatin Calcium) 40 Mg Tab 80 MG PO QAM, #90 TAB 3 Refills Lisinopril (Lisinopril) 5 Mg Tab 10 MG PO QAM, #90 TAB Nifedipine (Adalat Cc Ext Rel) 30 Mg Tab 30 MG PO QAM, #90 TAB 6 Refills Discharge Exam Review of Systems: Constitutional: No fever, No chills Cardiovascular: No chest pain, No orthopnea Abdomen: No pain, No nausea Musculoskeletal: + problem reported (right hemiplegia) Neurologic: + weakness, + balance problems Physical Exam: General Appearance: WD/WN, no apparent distress Eyes: PERRL, EOMI Neck: supple, no JVD Respiratory/Chest: chest non-tender, lungs clear, normal breath sounds Cardiovascular: regular rate, rhythm, no murmur Abdomen / GI: normal bowel sounds, non tender, soft Neurologic/Psychiatric: alert, oriented x 3 Hospital Course 57yo male with acute left rebeca CVA, not a candidate for TPA, likely undiagnosed glucose intolerance or diabetes Left rebeca cva, MRI brain repeated 07/24 with evolution from ischemia to infarct but no progression. ECHO, r/o source of embolus. Asa 81mg daily. Lipitor 80mg daily. PT, OT evals. Neurology consultation following recommends rehab, I spoke to [facility], they only have PT once a month,PT/Ot speech therapy for his stroke deficits HTn still elevated, increased lisinopril on discharge and will likely recommend increasing this and nifedipine as able to hyperglycemia - hemoglobin a1c 6.3 has been controlled with diet, education given and will need reinforcement code status - discussed extensively - he wants level 5 DNR; he would not even want short-term intubation/mechanical ventilation code status - discussed extensively - he wants level 5 DNR; he would not even want short-term intubation/mechanical ventilation conversation witnessed by 2 guards as well Total Time Spent: Greater than 30 minutes This includes examination of the patient, discharge planning, medication reconciliation, and communication with other providers. Discharge Instructions Please refer to the electronic Patient Visit Report (Discharge Instructions) for additional information.
[2017-07-26 13:13] VITALS: BP 184/107; PULSE 78; TEMP 36.8; O2SAT 95
== END 2017-07-26 15:10 | disposition home or self-care (01) | DRG 64 ==
LOC: C.EDB 05:36 → C.2T 08:02 → ENRESERV 08:41
PROVIDERS: ADMIT Internal Medicine; ATTEND Internal Medicine
DX: I63.8 Other cerebral infarction (principal); G93.6 Cerebral edema; G81.91 Hemiplegia, unspecified affecting right dominant side; I10 Essential (primary) hypertension; R47.1 Dysarthria and anarthria; R29.810 Facial weakness; R20.9 Unspecified disturbances of skin sensation; D72.829 Elevated white blood cell count, unspecified; R73.9 Hyperglycemia, unspecified; E78.00 Pure hypercholesterolemia, unspecified; E78.1 Pure hyperglyceridemia; Z66 Do not resuscitate